=== PATIENT | male | born 1995 | race African-American/Black ===

== ENCOUNTER 2021-03-31 12:33 | Emergency (ER) | payer SELFPAY ==
[~2021-03-31] VITALS: Ht 190.5 cm; Wt 85.7 kg
[2021-03-31 12:45] VITALS: BP 153/70
[2021-03-31] MEDS ORDERED: ACET-2605 PO (13:28)
--- NOTE | 2021-03-31 14:22 | NUR ---
CALLED [facility] FOR COVID RESULT. PER CLS STILL RUNNING.
--- NOTE | 2021-03-31 14:36 | NUR ---
Patient discharged to home in stable condition. Written and verbal after care instructions given. Patient verbalizes understanding of instruction.
== END 2021-03-31 14:36 | disposition home or self-care (01) ==
LOC: ER 12:40
DX: J06.9 Acute upper respiratory infection, unspecified (principal); Z20.822 Contact with and (suspected) exposure to COVID-19; E11.9 Type 2 diabetes mellitus without complications
CPT/HCPCS: 87426; 99283; C9803